=== PATIENT | male | born 1985 | race Hispanic/Latino ===

== ENCOUNTER 2017-11-01 16:22 | Emergency (ER) | payer OTHER ==
[~2017-11-01] VITALS: Ht 160 cm; Wt 83.0 kg
--- NOTE | 2017-11-01 17:18 | ED CARDIAC/CP/PALPITATIONS ---
History of Present Illness General Chief Complaint: Chest Pain Stated Complaint: "IZABELLA PAIN IN LT CHEST WHEN I BREATH,SOB" Source: patient Exam Limitations: no limitations Vital Signs & Intake/Output Vital Signs & Intake/Output Vital Signs Date Time Temp Pulse Resp B/P B/P Pulse O2 O2 Flow FiO2 Mean Ox Delivery Rate 11/02 1951 98.8 65 18 131/83 97 Room Air 11/01 1718 98.6 94 18 131/71 98 Room Air ED Intake and Output 11/02 0000 11/01 1200 Intake Total Output Total Balance Patient 183 lb Weight Weight Reported by Patient Measurement Method Allergies Coded Allergies: NO KNOWN ALLERGIES (02/10/11) Reconcile Medications Alprazolam 0.25 MG TABLET 1 TAB PO QPM ANXIETY (Reported) Escitalopram Oxalate 10 MG TABLET 1 TAB PO DAILY ANXIETY (Reported) Triage Nurses Notes Reviewed? yes Onset: Gradual Duration: waxing and waning Timing: recent history Location: substernal Radiation: arms HPI: Patient is a 32-year-old male with a past medical history anxiety who presents emergency room stating that yesterday while at rest patient had a gradual onset of left-sided anterior chest wall pain with associated symptoms of left arm numbness and shortness of breath. Patient states that the symptoms have waxed and waned the past 24 hours. States that lumbar spine movements and upper extremity movements make worse. Patient denies any fever chills cough hemoptysis leg swelling nausea vomiting extremity your seizure weakness or swelling. Denies any history of DVT or PE denies any illicit drug use denies any smoking or alcohol use. Denies any family history of cardiac disease. (Ha Kaiser) Past History Travel History Traveled to [place] past 21 day No Medical History Any Pertinent Medical History? none Surgical History Surgical History: non-contributory Psychosocial History What is your primary language Croatian Family History Hx Contributory? No (Ha Kaiser) Review of Systems Review of Systems Constitutional: Reports: no symptoms. EENTM: Reports: no symptoms. Respiratory: Reports: see HPI. Cardiovascular: Reports: see HPI. GI: Reports: no symptoms. Genitourinary: Reports: no symptoms. Musculoskeletal: Reports: no symptoms. Skin: Reports: no symptoms. Neurological/Psychological: Reports: no symptoms. Hematologic/Endocrine: Reports: no symptoms. Immunologic/Allergic: Reports: no symptoms. All Other Systems: Reviewed and Negative (Ha Kaiser) Physical Exam Physical Exam General Appearance: no apparent distress, alert, comfortable Head: atraumatic Eyes: Bilateral: normal appearance. Ears, Nose, Throat: hearing grossly normal Neck: normal inspection Respiratory: normal breath sounds, SUBSTERNAL POINT TENDERNESS UPON PALPATION Cardiovascular: regular rate/rhythm Gastrointestinal: normal bowel sounds, soft, non-tender Extremities: normal inspection, no edema Neurologic/Psych: no motor/sensory deficits, awake Skin: intact, normal color, warm/dry Lymphatic: no anterior cervical radha Core Measures ACS in differential dx? Yes CVA/TIA Diagnosis No Sepsis Present: No Sepsis Focused Exam Completed? No (Ha Kaiser) Progress Differential Diagnosis: AMI, aortic dissection, atrial fibrillation, cholecystitis, CHF/pulm edema, costochondritis, hyperkalemia, hypovolemia, hyperthyroid, hyperventilation, intracranial hemorrhage, musculoskeletal pain, myocarditis, pancreatitis, pericarditis, pneumonia, pneumothorax, PSVT, pulmonary embolism, PUD/GERD, PVCs/PACs, respiratory failure, sepsis, unstable angina, V-fib/V-Tach, WPW syndrome Plan of Care: Orders Procedure Date/time Status TROPONIN LEVEL 11/02 1999 Complete EKG 11/02 1999 Active Telemetry/Membership Secretary 11/02 1719 Active THYROID STIMULATING HORMONE 11/01 172 Complete TROPONIN LEVEL 11/01 1720 Complete MAGNESIUM 11/01 1720 Complete FREE T4 11/01 1720 Complete D-DIMER 11/01 1720 Complete COMPREHENSIVE METABOLIC PANEL 11/01 1720 Complete CBC WITHOUT DIFFERENTIAL 11/01 172 Complete EKG 11/01 1648 Active Laboratory Tests 11/01/17 1957: Troponin I < 0.01 11/01/17 1725: Anion Gap 12, Estimated GFR > 60, BUN/Creatinine Ratio 15.8, Glucose 115 H, Calcium 9.7, Magnesium 2.2, Total Bilirubin 0.4, AST 27, ALT 45, Alkaline Phosphatase 74, Troponin I < 0.01, Total Protein 7.5, Albumin 4.4, Globulin 3.1, Albumin/Globulin Ratio 1.4, TSH 0.576, Free T4 0.94, D-Dimer High Sensitivty < 200, CBC w Diff NO MAN DIFF REQ, RBC 4.81, MCV 86.5, MCH 30.6, MCHC 35.4, RDW 13.3, MPV 8.7, Gran % 74.7, Lymphocytes % 18.9 L, Monocytes % 5.1, Eosinophils % 0.4, Basophils % 0.9, Absolute Granulocytes 9.1 H, Absolute Lymphocytes 2.3, Absolute Monocytes 0.6, Absolute Eosinophils 0, Absolute Basophils 0.1 Patient upon initial presentation due to history of present illness and exam findings as suspicion of chest wall pain EKG shows subtle changes discussed EKG and patient with Dr. Fischer who advised patient if the second set of cardiac enzymes and EKG and if unremarkable patient to follow-up in office this week patient had unremarkable EKG and second set troponin upon discharge patient looks well no apparent distress patient had improvement of pain with ibuprofen. Diagnostic Imaging: Viewed by Me: Radiology Read. CXR Impression: no acute abnormality, no infiltrates, normal size heart Initial ED EKG: SINUS RHYTHM 79 BPM WITH FLATTENED t WAVES IN LATERAL LEADS AND MILD st DEPRESSION Repeat EKG: changed (NORMAL SINUS RHYTHM) Comments: PATIENT: HILARY STORY PRESENT AGE: 32 PATIENT ACCOUNT NO: [id number] : 86 LOCATION: [facility] ORDERING PHYSICIAN: Ha SCHWARTZ SERVICE DATE: 11/01/17 EXAM TYPE: RAD - XRY-CHEST XRAY, TWO VIEWS EXAMINATION: XR CHEST CLINICAL INFORMATION: Chest pain COMPARISON: April 03, 2011 TECHNIQUE: 2 views of the chest were obtained. FINDINGS: No significant abnormality is noted involving the heart, lungs, mediastinum, bony thorax or soft tissues. IMPRESSION: Unremarkable examination. DICTATED BY: William Rojas MD DATE/TIME DICTATED:11/01/171850 RESEARCH DIRECTOR:BINA DATE/TIME TRANSCRIBED:11/01/171850 (Ha Kaiser) Departure Departure Disposition: HOME OR SELF CARE Condition: Stable Clinical Impression Primary Impression: Chest pain Referrals: Ana WEI,Suzie Fischer MD,W Bolivar Additional Instructions: As discussed begin ibuprofen or Tylenol for pain and inflammation, follow-up this week with dock supervisor Dr. Fischer. If symptoms worsen or if you develop any new concerning symptom return to emergency room. Departure Forms: Customer Survey General Discharge Information (Ha Kaiser) PA/M48 M60 [employer] CRE[employer] Co-Sign Statement Statement: ED Attending supervision documentation- [x] I saw and evaluated the patient. I have also reviewed all the pertinent lab results and diagnostic results. I agree with the findings and the plan of care as documented in the PA's/M48 M60 ARMOR CREWMAN's documentation. [] I have reviewed the ED Record and agree with the PA's/M48 M60 ARMOR CREW[employer]'s documentation. [] Additions or exceptions (if any) to the PAs/M48 M60 ARMOR CREWMAN's note and plan are summarized below: [] (Jerrod WEI,Andrea Aguiar) Critical Care Note Critical Care Note Critical Care Time: non-applicable (Shelley SCHWARTZ,Ha)
[2017-11-01 17:35] LABS: ABSOLUTE BASOPHIL COUNT 0.1 /CUMM (0.0-0.2); ABSOLUTE EOSINOPHIL COUNT 0 /CUMM (0.0-0.7); ABSOLUTE GRANULOCYTE CT 9.1 /CUMM (1.4-6.5); ABSOLUTE LYMPH COUNT 2.3 /CUMM (1.2-3.4); ABSOLUTE MONOCYTE COUNT 0.6 /CUMM (0.10-0.60); BASOPHIL % 0.9 % (0.0-2.0); EOSINOPHIL % 0.4 % (0-5); GRANULOCYTE % 74.7 % (42.2-75.2); HEMATOCRIT 41.6 % (42-52); MEAN CORPUSCULAR HGB 30.6 PG (27.0-31.0); MEAN CORPUSCULAR HGB CONC 35.4 G/DL (33.0-37.0); MEAN CORPUSCULAR VOLUME 86.5 FL (80.0-94.0); MEAN PLATELET VOLUME 8.7 FL (7.4-10.4); PLATELET COUNT 246 /CUMM (130-400); RBC DISTRIBUTION WIDTH 13.3 % (11.5-14.5); RED BLOOD CELL CT 4.81 /CUMM (4.70-6.10); WHITE BLOOD CELL COUNT 12.1 /CUMM (4.8-10.8)
--- NOTE | 2017-11-01 18:55 | RADIOLOGY REPORT ---
EXAMINATION: XR CHEST CLINICAL INFORMATION: Chest pain COMPARISON: April 03, 2011 TECHNIQUE: 2 views of the chest were obtained. FINDINGS: No significant abnormality is noted involving the heart, lungs, mediastinum, bony thorax or soft tissues. IMPRESSION: Unremarkable examination.
[2017-11-01 19:52] VITALS: BP 131/83
[2017-11-01] MEDS ORDERED: ALPRAZOLAM0.25 M1 PO (19:56)
[2017-11-01] MEDS ORDERED: ESCITALOPRAM OX10 MG PO (19:56)
== END 2017-11-01 21:01 ==
LOC: ERH 16:22
PROVIDERS: Physician Assistant
DX: R07.89 Other chest pain (principal)
CPT/HCPCS: 71046; 93005; 93010